=== PATIENT | female | born 1990 | race Caucasian/White ===

== ENCOUNTER 2021-06-10 09:47 | Outpatient (RCR) | payer BC, SELFPAY ==
[2021-04-23 16:44] VITALS: BP 128/71; PULSE 104
[2021-05-13 10:17] VITALS: BP 113/66; PULSE 90
[2021-05-22 14:02] VITALS: BP 135/70
[2021-05-29 13:52] VITALS: BP 122/68; PULSE 78
[2021-06-05 14:10] VITALS: BP 125/62; PULSE 85
[2021-06-10 10:25] LABS: Hematocrit 37.7 % (37.0-47.0); Hemoglobin 12.5 g/dL (12.0-15.0); Mean Corpuscular HGB Conc 33.2 g/dl (32-36); Mean Corpuscular Hemoglobin 27.5 pg (26-34); Mean Platelet Volume 12.7 fl (7.4-10.4); Platelet Count Result 218 k/mm3 (150-375); Red Blood Count 4.54 M/mm3 (4.2-5.4); Red Cell Distribution Width 13.9 % (11.5-14.5); White Blood Count 14.1 K/mm3 (4.5-10.0)
[2021-06-10 10:29] VITALS: BP 104/84
[2021-06-10 10:39] LABS: Alanine Aminotransferase 19 U/L (4-35); Albumin Level 3.9 g/dL (3.5-5.1); Alkaline Phosphatase 133 U/L (38-126); Anion Gap 11 mmol/L (8-16); Aspartate Amino Transferase 23 U/L (14-36); Bilirubin,Total 0.4 mg/dL (0.2-1.3); Blood Urea Nitrogen 7 mg/dL (7-17); Calcium 9.7 mg/dL (8.4-10.2); Carbon Dioxide 20 mmol/L (22-30); Chloride 107 mmol/L (98-107); Estimated Glomerular Filt Rate > 60; Glucose 105 mg/dL (65-110); Potassium 3.9 mmol/L (3.4-5.0); Sodium 138 mmol/L (137-145)
[2021-06-10 10:40] LABS: Total Protein Urine Random 14 mg/dL; Ur Ttl Prot Creatinine Ratio 0.04 mg/mg (0-0.20)
[2021-06-10 10:49] LABS: Add Urine Microscopic? YES; Appearance Urine Cloudy (Clear); Bacteria Urine Trace /hpf; Bilirubin Urine Negative (Negative); Blood Urine Negative (Negative); Color Urine Amber (Yellow); Glucose Urine UA Negative (Negative); Ketones Urine Negative (Negative); Leukocyte Esterase Ur Negative LEU/UL (NEGATIVE); Mucus Urine Heavy /lpf; Nitrate Urine Negative (Negative); Protein Urine 2+ mg/dL (Negative); Specific Grav Ur 1.028 (1.001-1.035); Squamous Epithelial Cell Urine Many /hpf (Few); Urobilinogen Urine Negative mg/dL (<2.0)
== END 2021-07-09 13:16 | disposition home or self-care (01) ==
LOC: ANHOBOP 09:47
PROVIDERS: Visit Provider Student in an Organized Health Care Education/Training Program
DX: O36.8130 Decreased fetal movements, third trimester, not applicable or unspecified (principal); O16.3 Unspecified maternal hypertension, third trimester; Z3A.30 30 weeks gestation of pregnancy; Z3A.32 32 weeks gestation of pregnancy; Z3A.34 34 weeks gestation of pregnancy; Z3A.35 35 weeks gestation of pregnancy; Z3A.36 36 weeks gestation of pregnancy
CPT/HCPCS: 36415; 59025; 80053; 81001; 82570; 84156; 84550; 85027; 87086; 87088

== ENCOUNTER 2021-06-19 11:40 | Outpatient (CLI) | payer BC, MEDICAID, SELFPAY ==
[2021-06-19 12:31] VITALS: BP 135/82; PULSE 86
[2021-06-19 12:40] LABS: Basophils Percent Auto 0.3 % (0.2-1.2); Creatinine Urine 199.4 mg/dL; Eosinophils Absolute Auto 0.3 K/mm3 (0-0.3); Eosinophils Percent Auto 2.4 % (0-4.4); Hematocrit 37.5 % (37.0-47.0); Hemoglobin 12.4 g/dL (12.0-15.0); Immature Granulocyte Absolute 0.06 K/mm3 (0.00-0.031); Immature Granulocyte Percent A 0.4 % (0-0.5); Lymphocytes Absolute Auto 2.32 K/mm3 (0.9-3.2); Lymphocytes Percent Auto 16.1 % (18.3-44.2); Mean Corpuscular HGB Conc 33.1 g/dl (32-36); Mean Corpuscular Hemoglobin 27.3 pg (26-34); Mean Corpuscular Volume 82.4 fl (80-100); Mean Platelet Volume 12.8 fl (7.4-10.4); Monocytes Percent Auto 6.8 % (2.6-8.5); Neutrophils Absolute Auto 10.6 K/mm3 (1.3-6.7); Platelet Count Result 205 k/mm3 (150-375); Red Blood Count 4.55 M/mm3 (4.2-5.4); Red Cell Distribution Width 14.3 % (11.5-14.5); Total Protein Urine Random 35 mg/dL; Ur Ttl Prot Creatinine Ratio 0.18 mg/mg (0-0.20); White Blood Count 14.4 K/mm3 (4.5-10.0)
[2021-06-19 12:44] LABS: Alanine Aminotransferase 16 U/L (4-35); Albumin Level 3.8 g/dL (3.5-5.1); Alkaline Phosphatase 143 U/L (38-126); Anion Gap 8 mmol/L (8-16); Aspartate Amino Transferase 20 U/L (14-36); Bilirubin,Total 0.3 mg/dL (0.2-1.3); Blood Urea Nitrogen 7 mg/dL (7-17); Calcium 9.2 mg/dL (8.4-10.2); Carbon Dioxide 20 mmol/L (22-30); Chloride 106 mmol/L (98-107); Estimated Glomerular Filt Rate > 60; Glucose 96 mg/dL (65-110); Sodium 134 mmol/L (137-145); Uric Acid 5.8 mg/dL (2.5-7.5)
[2021-06-19 12:46] VITALS: BP 148/81; PULSE 87
[2021-06-19 13:01] VITALS: BP 145/69; PULSE 77
[2021-06-19 13:15] LABS: Add Urine Microscopic? YES; Appearance Urine Cloudy (Clear); Bacteria Urine 1+ /hpf; Bilirubin Urine Negative (Negative); Blood Urine Negative (Negative); Color Urine Yellow (Yellow); Glucose Urine UA Negative (Negative); Ketones Urine Negative (Negative); Leukocyte Esterase Ur Negative LEU/UL (NEGATIVE); Mucus Urine Few /lpf; Nitrate Urine Negative (Negative); Protein Urine 2+ mg/dL (Negative); Specific Grav Ur 1.025 (1.001-1.035); Squamous Epithelial Cell Urine Many /hpf (Few); Urobilinogen Urine Negative mg/dL (<2.0)
[2021-06-19 13:17] VITALS: BP 106/75; PULSE 86
--- NOTE | 2021-06-19 13:25 | PC.NURSE ---
Dr Bernabe informed of [facility] labs and BP's, ok to dc home.
[2021-06-19 13:33] VITALS: BP 135/82; PULSE 86
== END 2021-06-19 13:33 | disposition home or self-care (01) ==
LOC: ANHOBOP 11:49 → ANHOBPP 11:52
PROVIDERS: Visit Provider Student in an Organized Health Care Education/Training Program
DX: O13.9 Gestational [pregnancy-induced] hypertension without significant proteinuria, unspecified trimester (principal); Z3A.00 Weeks of gestation of pregnancy not specified
CPT/HCPCS: 36415; 59025; 80053; 81001; 82570; 84156; 84550; 85025; 87086; 87088; 99199

== ENCOUNTER 2021-06-21 19:50 | Inpatient (IN) | payer BC, MEDICAID, SELFPAY ==
[2021-06-21] VITALS (13 sets, daily range): BP systolic 124–142; BP diastolic 64–82; PULSE 87–113; TEMP 37.3; BMI 50.3
[2021-06-21 20:40] LABS: Basophils Absolute Auto 0.1 K/mm3 (0.0-0.1); Basophils Percent Auto 0.4 % (0.2-1.2); Eosinophils Absolute Auto 0.3 K/mm3 (0-0.3); Eosinophils Percent Auto 1.6 % (0-4.4); Hematocrit 36.6 % (37.0-47.0); Hemoglobin 12.3 g/dL (12.0-15.0); Immature Granulocyte Absolute 0.09 K/mm3 (0.00-0.031); Immature Granulocyte Percent A 0.5 % (0-0.5); Lymphocytes Absolute Auto 3.19 K/mm3 (0.9-3.2); Mean Corpuscular HGB Conc 33.6 g/dl (32-36); Mean Corpuscular Hemoglobin 27.5 pg (26-34); Mean Corpuscular Volume 81.9 fl (80-100); Mean Platelet Volume 12.3 fl (7.4-10.4); Monocytes Absolute Auto 1.2 K/mm3 (0.1-0.6); Monocytes Percent Auto 7.1 % (2.6-8.5); Neutrophils Percent Auto 71.4 % (45.5-73.1); Platelet Count Result 228 k/mm3 (150-375); Red Blood Count 4.47 M/mm3 (4.2-5.4); Red Cell Distribution Width 14.3 % (11.5-14.5); White Blood Count 16.8 K/mm3 (4.5-10.0)
--- NOTE | 2021-06-21 20:44 | LDADM ---
This patient, Anna Winter, was admitted to Labor/Delivery/Recovery 106 on 06/21/21 at 19:50. Plans for labor, pain management and were discussed with patient. Patient/family oriented to hospital policies and general routines including ID bracelet, bed and alarms, visiting hours, pain management, procedures, bathroom and other care routines, personal items, smoking policy, room service/diet and guest tray routines, infant security routines, and visiting hours. Patient/Family are encouraged to report perceived risks to care and to ask questions if they do not understand what they are told or what they should do. See OBIX for further documentation.
[2021-06-21] MEDS: miSOPROStol 25 MCG TABLET VAGINAL (20:54)
[2021-06-21 21:31] LABS: HIV 1/2 Ab P24 Ag Result Negative (Negative)
[2021-06-21 21:34] LABS: Amphetamine Screen Urine Negative (Negative); Barbiturate Screen Urine Negative (Negative); Benzodiazepines Screen Urine Negative (Negative); Cannabinoid Screen Urine Positive (Negative); Cocaine Screen Urine Negative (Negative); Methadone Screen Urine Negative (Negative); Opiate Screen Urine Negative (Negative); Phencyclidine Screen Urine Negative (Negative)
[2021-06-22] VITALS (91 sets, daily range): BP systolic 64–173; BP diastolic 25–143; PULSE 61–206; RESP 14–18; TEMP 36.5–37.1; O2SAT 2–100
[2021-06-22] MEDS: miSOPROStol 25 MCG TABLET VAGINAL (02:13)
[2021-06-22] MEDS: LACTATED RINGERS 1,000 ML 125 ML IV CONT ×2 (05:10→17:13)
[2021-06-22] MEDS: fentaNYL CITRATE INJ (*CRX) 100 MCG/2 ML VIAL 50 MCG IV PUSH (07:17)
--- NOTE | 2021-06-22 09:18 | PM.IMHP ---
H&P: HPI History of Present Illness Date/Time: 06/22/21 09:18 Chief Complaint: intrauterine at term gestational hypertension Narrative: 30 yo G1 at 38w4d who presents for IOL for gestational HTN. Pt had elevated BP in the antepartum period. She was started on labetalol. Her preeclampsia laps remained normal. BP remained elevated despite antihypertensives. The remainder of her was uncomplicated. Review of Systems Cardiovascular: Cardiovascular: Denies chest pain, Denies leg edema, Denies palpitations, Denies dyspnea and Denies dyspnea on exertion Respiratory: Respiratory: Denies cough, Denies dyspnea and Denies dyspnea on exertion Gastrointestinal: Gastrointestinal: Denies abdominal pain, Denies constipation, Denies diarrhea, Denies nausea and Denies vomiting Genitourinary: Genitourinary: Denies hematuria, Denies urinary frequency, Denies dysuria, Denies pelvic pain, Denies urinary incontinence and Denies vaginal discharge Neurologic: Reports system reviewed and no additional complaints, except as documented Psychiatric: Psychiatric: Reports no additional psychiatric complaints Endocrine: Endocrine: Denies palpitations [facility] Family History Family History (Updated 05/29/21 @ 13:30 by Nura Larson RN) Other No pertinent family history Social History Social History Years smoked: 10 Smoking status: Former smoker Tobacco type: e-cigarettes/vaping Second hand tobacco smoke exposure: No Alcohol intake: never Substance use: never Spiritual care concerns: No Meds Home Medications and Allergies Home Medications Medication Instructions Recorded Confirmed Type labetalol 100 mg PO Q12H 05/29/21 05/29/21 History prenat.vits,mariann,[id number] 1 tablet PO DAILY 05/29/21 05/29/21 History [ #2] Allergies Allergy/AdvReac Type Severity Reaction Status Date / Time No Known Allergies Allergy Mild Verified 05/29/21 13:27 Vital Signs Vital Signs - 24 hr 06/21/21 20:37 06/21/21 20:46 06/21/21 21:12 Temperature Pulse Rate 90 99 113 H Blood Pressure 142/80 H 135/78 138/64 Pulse Oximetry 06/21/21 21:16 06/21/21 21:20 06/21/21 21:31 Temperature 37.3 C Pulse Rate 95 106 H Blood Pressure 142/73 H 137/75 Pulse Oximetry 06/21/21 21:46 06/21/21 22:01 06/21/21 22:16 Temperature Pulse Rate 99 87 91 Blood Pressure 132/68 132/69 124/71 Pulse Oximetry 06/21/21 22:31 06/21/21 22:46 06/21/21 23:01 Temperature Pulse Rate 101 H 99 94 Blood Pressure 133/72 124/76 135/82 Pulse Oximetry 06/21/21 23:16 06/22/21 00:01 06/22/21 00:31 Temperature Pulse Rate 93 86 87 Blood Pressure 129/79 113/59 L 111/64 Pulse Oximetry 06/22/21 01:01 06/22/21 02:01 06/22/21 02:35 Temperature Pulse Rate 89 94 92 Blood Pressure 111/58 L 141/71 H 143/83 H Pulse Oximetry 06/22/21 03:01 06/22/21 03:31 06/22/21 04:01 Temperature Pulse Rate 90 88 87 Blood Pressure 137/81 135/65 137/62 Pulse Oximetry 06/22/21 04:31 06/22/21 06:41 06/22/21 07:49 Temperature 36.8 C Pulse Rate 79 70 Blood Pressure 138/61 134/83 Pulse Oximetry 06/22/21 08:01 06/22/21 08:16 06/22/21 08:21 Temperature Pulse Rate 71 90 Blood Pressure 134/86 145/91 H Pulse Oximetry 100 100 06/22/21 08:24 06/22/21 08:26 06/22/21 08:28 Temperature Pulse Rate 92 74 77 Blood Pressure 122/79 137/78 141/97 H Pulse Oximetry 100 06/22/21 08:31 06/22/21 08:32 06/22/21 08:34 Temperature Pulse Rate 93 93 Blood Pressure 140/64 143/76 H Pulse Oximetry 100 06/22/21 08:36 06/22/21 08:38 06/22/21 08:41 Temperature Pulse Rate 101 H 102 H 115 H Blood Pressure 114/63 127/74 135/73 Pulse Oximetry 100 98 06/22/21 08:46 06/22/21 08:49 06/22/21 08:51 Temperature Pulse Rate 84 104 H 72 Blood Pressure 128/90 119/91 H 105/36 L Pulse Oximetry 100 100 06/22/21 08:53 06/22/21 08:56 06/22/21 08:58 Temperature
--- NOTE | 2021-06-22 09:22 | PM.OBPNLAB ---
Pain Control Date/time seen: 06/22/21 09:22 Pain control: epidural Pelvic Exam Dilation (cm): 3 Effacement (%): 90 station: -2 Amniotic membrane status: Ruptured Comments: AROM for thin meconium Contractions Monitor mode: Internal Status status: Category ll Comments: FHT with prolonged deceleration. FHT returned to baseline with interventions. FHT then noted to have another spontaneou deceleration. Assessment and Plan Plan: Comments: FHT with second prolonged FHT deceleration. fetus noted to have several spontaneous decelerations. counseled pt on plan of care. Pt consented for primary section for non-reassuring status. Pt agreed with plan.
--- NOTE | 2021-06-22 10:24 | W.PM.PROC2 ---
Procedure Note - Detailed Date of Procedure 06/22/21 Pre-op Diagnosis IOL for GHTN non-reassuring FHT Post-op Diagnosis same Procedure Performed low transverse section Surgeon Rocky Bernabe MD Anesthesia spinal and epidural Indications non-reassuring FHT gestational HTN Description of Procedure The patient was taken to the operating room. A combined spinal epidural anesthesic was administered and found to be adequate at a t-10 level. The patient was placed in a supine position with a slight left lateral tilt. A tellez catheter was placed with return of clear urine. A Bovie grounding pad was placed. Surgical prep was performed and surgical drapes were placed. A surgical time out was performed. A Pfannenstiel skin incision was then made with the scalpel and carried through to the underlying layer of fascia. The fascia was then incised in the midline and the incision was extended laterally with the Cueva scissors. The superior aspect of the fascia was then grasped with the Brien clamps, elevated, and the underlying rectus muscles dissected off bluntly and sharply. Attention was then turned to the inferior aspect of this incision which, in a similar fashion, was grasped, tented up with the Brien clamps, and the rectus muscles dissected off both bluntly and sharply. The rectus muscles were then in the midline. The peritoneum was identified and entered bluntly. The peritoneal incision was then extended superiorly and inferiorly with good visualization of the bladder. The vesico-uterine serosa was identified and dissected to create a bladder flap. The bladder blade was reinserted. The uterus was inspected for rotation. A low-transverse uterine incision was made sharply with the scalpel and entry was made into the uterine cavity. An amniotomy was made and copious amounts of clear fluid were noted on return. The uterine incision was extended laterally bluntly. The bladder blade was removed and the fetus was delivered atraumatically. The fetus was noted to have a nuchal cord x 2 that was reduced. The nose and mouth were suctioned with a bulb syringe. The umbilical cord was clamped twice and cut. The was handed off to the waiting staff. At the time of the delivery, the had good color, tone and grimace. The infant cried with minimal stimulation. A second segment of umbilical cord was clamped and cut for cord blood gasses. Cord blood was collected for determination of the blood type and for direct Nix. The placenta was delivered spontaneously without difficulty. The placenta appeared grossly normal and complete. The uterus was exteriorized and cleared of all clots and debris. The uterine incision was repaired using 0-monocryl suture in a running fashion. A second layer of 0 Monocryl suture was used in an imbricating fashion to obtain excellent hemostasis and uterine strength. The uterine closure was inspected for hemostasis. The posterior aspect of the uterus and the broad ligaments were inspected and the posterior cul-de-sac cleared of fluid and blood clots. The uterine closure was again inspected and found to be hemostatic. The uterus was returned to the abdominal cavity. The pericolic gutters were inspected and were cleared of all blood clots and debris. The uterine closure was then re inspected to ensure hemostasis as were all subfascial tissues. The peritoneum was closed using 3-0 vicryl in a running fashion. The fascia was reapproximated with 0-vicryl in a running fashion. The subcutaneous tissue was irrigated and hemostasis achieved with electrocautery. It was reapproximated with 3-0 vicryl in a running fashion. The skin was closed with 4-0 vicryl in a subcuticular fashion. A sterile ISIDRO vacuum dressing was applied to the wound. The patient tolerated the procedure well. Sponge, lap and needle counts were correct times three. The patient was taken to recovery in stable condition and without anticipated complications. E
[2021-06-22 10:25] LABS: Rapid Plasma Reagin Non-Reactive (NonReactive)
[2021-06-22] MEDS: OXYTOCIN 30 UNITS/NS 500 ML 30 UNITS/500 ML BAG 125 UNITS IV CONT (12:35)
--- NOTE | 2021-06-22 13:20 | OBPPTRN ---
1240-Patient transferred to post room #290 via stretcher. Support person present. Oriented to unit, room, information board, rooming in, admission packet and security measures. Patient verbalizes understanding.
--- NOTE | 2021-06-22 13:50 | PC.NURSE ---
Mother called out for assist with feeding, mother reports infant eagerly fed for first feeding. is able to freely thrust tongue past gum ridge and flange both lips. Skin is intact on both nipples, no redness and bruising noted. Reviewed infant feeding cues, frequencies, duration of feedings, feeding elimination flow sheet, and signs of adequate intake. Demonstrated stimulation techniques to wake for feeding. Assisted with to breast. Reviewed positioning/alignment in cross cradle, holding breast in ?U? hold and guided asymmetrical latch on. Reviewed rational for each. Infant able to latch correctly within a few attempts. Infant nursed eagerly with steady draws and occasional swallowing noted, some pausing noted. Reviewed signs of a correct latch, effective nursing and suck swallow ratio. Suggested mother stimulate while feeding to increase stimulation for milk supply, for increased intake and to assist with maintaining deep latch. would slip to shallow latch causing tenderness. Demonstrated how to adjust latch more deeply while feeding as needed. Mother reports she can feel the difference in latch with no tenderness. Nipple care reviewed of lanolin after feedings, warm compresses as needed. Instructed mother to call out for RN assistance if she is unable to latch infant for feeding or she has discomfort with nursing. Instructed feeding should be initiated three hours from start of last feeding or if feeding cues are noted before. Mother voiced understanding of information shared.
[2021-06-22] MEDS: DOCUSATE SODIUM 100 MG CAPSULE PO (17:19)
[2021-06-22] MEDS: HYDROcodone/acetaminophen (*CRX) 10-325 MG TABLET 1 TAB PO (23:21)
[2021-06-22] MEDS: KETOROLAC 30 MG/ML VIAL (*BKC) IV PUSH (23:23)
[2021-06-23] VITALS: BP 140/83; PULSE 89; RESP 16; TEMP 37.1; O2SAT 97
[2021-06-23] MEDS: HYDROcodone/acetaminophen (*CRX) 10-325 MG TABLET 1 TAB PO ×4 (02:54→19:27)
[2021-06-23 04:45] VITALS: BP 130/69; PULSE 88; RESP 16; TEMP 36.6; O2SAT 99
[2021-06-23 06:01] LABS: Basophils Absolute Auto 0.1 K/mm3 (0.0-0.1); Basophils Percent Auto 0.4 % (0.2-1.2); Eosinophils Absolute Auto 0.3 K/mm3 (0-0.3); Eosinophils Percent Auto 1.5 % (0-4.4); Hematocrit 34.6 % (37.0-47.0); Hemoglobin 11.4 g/dL (12.0-15.0); Immature Granulocyte Absolute 0.11 K/mm3 (0.00-0.031); Immature Granulocyte Percent A 0.7 % (0-0.5); Lymphocytes Absolute Auto 2.65 K/mm3 (0.9-3.2); Mean Corpuscular HGB Conc 32.9 g/dl (32-36); Mean Corpuscular Hemoglobin 27.1 pg (26-34); Mean Corpuscular Volume 82.2 fl (80-100); Mean Platelet Volume 12.7 fl (7.4-10.4); Monocytes Absolute Auto 1.5 K/mm3 (0.1-0.6); Monocytes Percent Auto 8.9 % (2.6-8.5); Neutrophils Percent Auto 72.5 % (45.5-73.1); Platelet Count Result 212 k/mm3 (150-375); Red Blood Count 4.21 M/mm3 (4.2-5.4); Red Cell Distribution Width 14.4 % (11.5-14.5); White Blood Count 16.5 K/mm3 (4.5-10.0)
[2021-06-23] MEDS: DOCUSATE SODIUM 100 MG CAPSULE PO ×2 (07:19→19:27)
[2021-06-23] MEDS: SIMETHICONE 80 MG TAB.CHEW PO ×2 (07:19→19:26)
[2021-06-23] MEDS: IBUPROFEN 600 MG TABLET PO ×3 (07:20→19:27)
--- NOTE | 2021-06-23 07:28 | WPDANLDNPN2 ---
Anes-Prog Note L&D-Neuraxial Date/Time: 06/23/21 07:28 Neuraxial medications: epidural PF morphine Opiod-related complaints: none Patient feedback: Patient satisfied with post-operative pain management.
--- NOTE | 2021-06-23 07:29 | WPDANLDPN2 ---
Anes-Prog Note L&D Date/Time: 06/23/21 07:29 Comfortable throughout: labor, delivery and section Neuraxial method: epidural Epidural/Spinal procedure site: clean & non-tender Neuro status: Neuro function grossly intact. Cardiovascular status: normal Respiratory status: normal Airway patency: baseline Mental status: baseline Post-Op hydration status: normal Vital Signs: Last Vital Signs Temp 36.6 C 06/23/21 04:45 Pulse 88 06/23/21 04:45 Resp 16 06/23/21 04:45 BP 130/69 06/23/21 04:45 Pulse Ox 99 06/23/21 04:45 Pain score (VAS): 0 I/O: Intake & Output 06/22/21 06/22/21 06/23/21 15:59 23:59 07:59 Intake Total 100 600 900 Output Total 665 650 725 Balance -565 -50 175 Post-procedural complaints: none Patient feedback: Patient satisfied with anesthetic care.
--- NOTE | 2021-06-23 07:43 | PM.OBPNVD ---
OB - PN: Subj Subjective Date/time seen: 06/23/21 07:43 Interval history: Patient doing well this AM. she is ambulating out of bed. She is tolerating PO. She reports adequate pain control. Her bleeding is normal and she reports normal lochia. She denies fever, chills, N/V. She has not yet passed flatus. Patient comments: no complaints and pain well controlled; no flatus present OB - PN: Obj Data Labs CBC & Chem 7: 06/23/21 05:23 Labs: Laboratory Results - last 24 hr 06/21/21 06/23/21 20:35 05:23 WBC 16.5 H RBC 4.21 Hgb 11.4 L Hct 34.6 L MCV 82.2 MCH 27.1 MCHC 32.9 RDW 14.4 Plt Count 212 MPV 12.7 H Immature Gran % (Auto) 0.7 H Neut % (Auto) 72.5 Lymph % (Auto) 16.0 L [place] % (Auto) 8.9 H Eos % (Auto) 1.5 Baso % (Auto) 0.4 Lymph # (Auto) 2.65 [place] # (Auto) 1.5 H Eos # (Auto) 0.3 Baso # (Auto) 0.1 Abs Immat Gran (auto) 0.11 H Absolute Neuts (auto) 12.0 H Absolute Nucleated RBC 0.0 Nucleated RBC % 0.0 RPR Non-reactive OB - PN A/P Plan day: 1 Plan: routine care Comments: patient doing well this AM voiding spontaneously tolerating diet H/H stable continue routine PP care plan for infant circumcision today. risks, benefits and alternatives discussed. Pt consented and agreed Time Spent With Patient Time: Total time spent is greater than 50% in coordination of care (as documented) at patient's floor/unit and/or counseling patient: Time with patient: less than 15 minutes Review of Systems Constitutional: Constitutional: Reports no additional constitutional complaints Cardiovascular: Cardiovascular: Reports no additional cardiovascular complaints Respiratory: Respiratory: Reports no additional respiratory complaints Gastrointestinal: Gastrointestinal: Reports no additional gastrointestinal complaints Genitourinary: Genitourinary: Reports no additional female genitourinary complaints Exam Const: General: comfortable and no acute distress Resp: Effort & Inspection: normal respiratory effort Auscultation: clear to auscultation bilaterally Cardio: Rate: regular rate GI: GI Palp: Yes Soft to palpation and Yes Tenderness to palpation present (GI) (appropriately tender around incision ) Auscultation: normal bowel sounds Other: fundus firm and below umbilicus Incision C/D/I Urinary Catheter: Urinary Catheter: urine clear Psych: Appearance: grossly normal Mental Status: mental status grossly normal Affect: normal affect
[2021-06-23 08:25] VITALS: BP 107/63; PULSE 74; RESP 18; TEMP 36.9; O2SAT 99
--- NOTE | 2021-06-23 08:30 | PCDIET ---
Consult with pt., mother reports is eagerly feeding with slight tenderness at times. This is mother?s 1st child to breastfeed. Reviewed feeding cues, frequencies, duration of feedings, feeding elimination flow sheet, and signs of adequate intake. Demonstrated stimulation techniques to wake infant for feeding. Reviewed signs of a correct latch, effective nursing and suck swallow ratio. Nipple care reviewed of lanolin after feedings and warm compresses as needed. Requested mother to call out for RN/LC assistance next feeding to assess latch due reported nipple tenderness. Instructed feeding should be initiated three hours from start of last feeding or if feeding cues are noted before. Mother voiced understanding of information shared.
--- NOTE | 2021-06-23 12:35 | PC.NURSE ---
Mother called out for observation of feeding. Mother has independently put to breast in football. Reviewed feeding cues, frequencies, duration of feedings, feeding elimination flow sheet, and signs of adequate intake. Demonstrated stimulation techniques to wake for feeding. Assisted with infant to breast. Reviewed positioning/alignment in football, holding breast in ?C? hold and guided asymmetrical latch on. Reviewed rational for each. was latched correctly. Infant nursed eagerly with steady draws and occasional swallowing noted, some pausing noted. Reviewed signs of a correct latch, effective nursing and suck swallow ratio. Suggested mother stimulate while feeding to increase stimulation for milk supply, for increased intake and to assist with maintaining deep latch. was able to maintain latch without discomfort to mother. Demonstrated how to adjust latch more deeply while feeding as needed. Nipple care reviewed of lanolin after feedings, warm compresses as needed. Instructed mother to call out for RN assistance if she is unable to latch for feeding or she has discomfort with nursing. Instructed feeding should be initiated three hours from start of last feeding or if feeding cues are noted before. Mother voiced understanding of information shared.
[2021-06-23 16:20] VITALS: BP 136/82; PULSE 103; RESP 16; TEMP 36.8; O2SAT 99
[2021-06-23] MEDS: TETANUS,DIPHTHERIA,AC PERTUSSIS ADULT (0.5 ML) BOOSTRIX IM (19:27)
[2021-06-23 20:15] VITALS: BP 142/83; PULSE 97; RESP 16; TEMP 36.5; O2SAT 96
[2021-06-24] VITALS: BP 144/84
[2021-06-24] MEDS: HYDROcodone/acetaminophen (*CRX) 10-325 MG TABLET 1 TAB PO ×2 (02:22→09:04)
[2021-06-24 05:30] VITALS: BP 139/77
--- NOTE | 2021-06-24 07:23 | P.DS_ITS ---
DS: Admitting Diagnosis Discharge Date 06/24/21 Admitting Diagnosis gestational hypertension intrauterine at term OB - DS: Summary OB Procedures : None OB Procedures Intrapartum: OB Procedures: : None Peripartum Data Infant Delivery Method: Section Procedures: Procedures Operation Date: 06/22/21 09:20 Actual Procedure Side Surgeon p Section Not Applicable Rocky Bernabe MD complications: none Status at Discharge Functional status at discharge: independent ambulation Overall status at discharge: patient is progressing back to baseline Time Spent with Patient Time attestation: Total time spent providing and/or coordinating discharge services: Time spent: Less than 30 minutes Exam Const: General: comfortable and no acute distress Resp: Effort & Inspection: normal respiratory effort Auscultation: clear to auscultation bilaterally Cardio: Rate: regular rate GI: Inspection: non-distended GI Palp: Yes Soft to palpation, No Firmness to palpation present (GI), Yes Tenderness to palpation present (GI) (mild tenderness over incision ) and No Guarding due to palpation present (GI) Auscultation: normal bowel sounds Psych: Appearance: grossly normal Mental Status: mental status grossly normal DS: Data Data Completed and Pending Pending studies at discharge: Pending at discharge 06/22/21 09:43 Surgical [PTH] Routine Discharge Plan Discharge Discharging Clinician: Rocky Bernabe Patient Disposition: Home, Self-Care Activity: as tolerated and pelvic rest Diet: regular Patient Instructions: Antibiotic Form, (DC) Stand Alone Forms: General Discharge Information Follow-up/Referrals: Rocky Bernabe MD [Physician] - 1 Week Discharge Medications: New oxycodone-acetaminophen 5-325 mg tablet 1 tablet PO Q6H PRN (Reason: pain) Qty: 28 RF: 0 ibuprofen 600 mg Tablet 600 mg PO Q6H PRN (Reason: Cramping) Qty: 30 RF: 0 Continued #2 Tablet 1 tablet PO DAILY RF: 0 Discontinued labetalol 100 mg Tablet 100 mg PO Q12H RF: 0 Date of admission: 06/21/21 19:50 Primary Care Provider: PHYSICIAN,MARKETING RESEARCHER Admitting Provider: Rocky Bernabe Attending physician on admission: Rocky Bernabe Condition: Stable
[2021-06-24 07:30] VITALS: BP 105/85; PULSE 108; RESP 18; TEMP 37.7; O2SAT 99
[2021-06-24] MEDS: MULTIVIT/MIN/PREN/FOL AC/IRON TABLET 1 TAB PO (09:05)
[2021-06-24] MEDS: DOCUSATE SODIUM 100 MG CAPSULE PO (09:05)
[2021-06-24] MEDS: IBUPROFEN 600 MG TABLET PO (09:05)
[2021-06-24] MEDS: SIMETHICONE 80 MG TAB.CHEW PO (09:06)
--- NOTE | 2021-06-24 09:15 | PC.NURSE ---
Consult with pt., observed mother is able to independently latch with appropriate positioning/alignment. eagerly latches on first attempt with long rhythmical draws and frequent swallowing noted. Stressed for mother to wake infant every three hours for feeding. Mother states infant is freq. sleepy, demonstrated stimulation techniques to wake, easily awoken with feeding cues noted. Mother is able to independently latch correctly/deeply. She denies any nipple discomfort, is feeding as required and waking to feed if needed. Infant has had at least 8 effective feedings in the past 24 hours, and is currently meeting outcomes for weight, output, jaundice and feeding frequencies. Mother states she feels confident to continue effective at home. Reviewed transition to breast milk, signs of adequate intake, and engorgement/relief. Instructed to call ICP if intake/output less than required. Reviewed regular medications mother is taking. Information provided per Lupe. Reviewed community resources on the [facility] website and in the Mom/Baby guide. Information on outpatient services provided. Mother has no further questions at this time. Instructed feeding should be initiated three hours from start of last feeding or if feeding cues are noted before until seen by ICP. Mother voiced understanding of information shared.
--- NOTE | 2021-06-24 17:58 | OBPPTRN ---
1246 Patient transferred to post room #292 via W/C. Support person present. Oriented to unit, room, information board, rooming in, admission packet and security measures. Patient verbalizes understanding.
--- NOTE | 2021-06-24 19:16 | PC.NURSE ---
1030 Patient viewed the discharge video Mother & Baby Care, The First Two Weeks . Patient was given the opportunity and encouraged to ask questions. Patient verbalized understanding of information shared and has been given the mother/baby guide for home reference.
[2021-06-26 11:35] VITALS: BP 154/81; PULSE 89; RESP 20; O2SAT 100
== END 2021-06-24 15:32 | disposition home or self-care (01) | DRG 788 ==
LOC: ANHLDR 20:00 → ANHOB2 06-22 12:47
PROVIDERS: Admitting Provider Student in an Organized Health Care Education/Training Program; Visit Provider Student in an Organized Health Care Education/Training Program
PROC: 10D00Z1 Extraction of Products of Conception, Low, Open Approach (ICD-10-PCS; CPT 59514; principal; 2021-06-22 09:20)
DX: O13.4 Gestational [pregnancy-induced] hypertension without significant proteinuria, complicating childbirth (principal); O76 Abnormality in fetal heart rate and rhythm complicating labor and delivery; O69.81X0 Labor and delivery complicated by cord around neck, without compression, not applicable or unspecified; O77.0 Labor and delivery complicated by meconium in amniotic fluid; Z3A.38 38 weeks gestation of pregnancy; Z37.0 Single live birth; Z23 Encounter for immunization
CPT/HCPCS: 36415; 80307; 85025; 86592; 86703; 86850; 86900; 86901; 88307; 90471; 90653; 90715; A9270; G0008; G0432; J0131; J1885; J2274; J2405; J2590; J2795; J3010; J7120